=== PATIENT | female | born 1945 | race African-American/Black ===

== ENCOUNTER 2016-11-08 07:50 | Inpatient (IN) | payer OTHER, MEDICARE ==
[~2016-11-08] VITALS: Ht 160 cm; Wt 79.8 kg
[~2016-11-08 07:50] MED LIST: ASPIRIN E.C.81 M1 PO; Advil,Nuprin,Motrin PO; CENTRUM SILV1 TABLE1 PO; COZAAR100 MG PO; Caltrate 600+D Plus PO; LOVENOX40 MG/0.4 SC; MOTRIN600 MG PO; ULTRAM50 MG PO; ZOCOR20 MG PO
[2016-11-08 08:24] VITALS: BP 138/65
[2016-11-08 15:30] VITALS: BP 150/67
[2016-11-08 18:05] LABS: ANION GAP 8 MEQ/L (2-14); CHLORIDE 105 MEQ/L (99-109); GFR ESTIMATE (CALCULATED) > 59 mL/min/; GLUCOSE 222 mg/dL (70-99); POTASSIUM 3.4 MEQ/L (3.7-5.4); SAMPLE HEMOLYSIS CHECK 0; SAMPLE ICTERIC CHECK 0; SAMPLE LIPEMIA CHECK 0; SODIUM 139 MEQ/L (136-147); UREA NITROGEN (BUN) 8 mg/dL (9-23)
[2016-11-08 19:32] VITALS: BP 144/65
[2016-11-08 19:51] LABS: HEMATOCRIT 34.9 % (36.0-46.0); MCH 25.4 PG (29.0-34.0); MCHC 34.1 G/DL (30.0-36.0); MCV 74.6 FL (83-99); MEAN PLAT.VOLUME 9.5 uM^3 (9.5-12.4); PLATELET COUNT 272 K/uL (156-360); RBC DIS.WIDTH-CV 14.6 % (11.8-14.6); RED BLOOD COUNT 4.68 M/uL (3.80-5.20)
[2016-11-08 19:57] LABS: WHITE BLOOD COUNT 12.8 K/uL (4.1-10.2)
[2016-11-08 23:28] VITALS: BP 116/59
[2016-11-09 04:31] VITALS: BP 139/64
[2016-11-09 06:19] LABS: ANION GAP 6 MEQ/L (2-14); CHLORIDE 110 MEQ/L (99-109); GFR ESTIMATE (CALCULATED) > 59 mL/min/; GLUCOSE 130 mg/dL (70-99); POTASSIUM 3.7 MEQ/L (3.7-5.4); SAMPLE HEMOLYSIS CHECK 0; SAMPLE ICTERIC CHECK 0; SAMPLE LIPEMIA CHECK 0; SODIUM 141 MEQ/L (136-147); UREA NITROGEN (BUN) 5 mg/dL (9-23)
[2016-11-09 06:27] LABS: HEMATOCRIT 32.7 % (36.0-46.0); MCH 25.5 PG (29.0-34.0); MCHC 34.3 G/DL (30.0-36.0); MCV 74.3 FL (83-99); MEAN PLAT.VOLUME 9.8 uM^3 (9.5-12.4); PLATELET COUNT 264 K/uL (156-360); RBC DIS.WIDTH-CV 14.6 % (11.8-14.6); RBC DIS.WIDTH-SD 39.3 % (39-53); WHITE BLOOD COUNT 12.2 K/uL (4.1-10.2)
[2016-11-09 07:50] VITALS: BP 131/62
[2016-11-09 11:50] VITALS: BP 125/66
[2016-11-09 15:20] VITALS: BP 134/72
[2016-11-09 19:45] VITALS: BP 138/67
[2016-11-09 23:28] VITALS: BP 144/71
[2016-11-10 00:04] VITALS: BP 156/75
[2016-11-10 04:07] VITALS: BP 150/69
[2016-11-10 06:18] LABS: HEMATOCRIT 30.3 % (36.0-46.0); MCH 25.1 PG (29.0-34.0); MCHC 33.7 G/DL (30.0-36.0); MCV 74.4 FL (83-99); MEAN PLAT.VOLUME 9.7 uM^3 (9.5-12.4); PLATELET COUNT 244 K/uL (156-360); RBC DIS.WIDTH-CV 14.7 % (11.8-14.6); RBC DIS.WIDTH-SD 39.6 % (39-53); RED BLOOD COUNT 4.07 M/uL (3.80-5.20); WHITE BLOOD COUNT 12.9 K/uL (4.1-10.2)
[2016-11-10 06:58] LABS: ANION GAP 7 MEQ/L (2-14); CHLORIDE 105 MEQ/L (99-109); POTASSIUM 3.1 MEQ/L (3.7-5.4); SAMPLE HEMOLYSIS CHECK 0; SAMPLE ICTERIC CHECK 0; SAMPLE LIPEMIA CHECK 0; SODIUM 139 MEQ/L (136-147)
[2016-11-10 07:04] LABS: GFR ESTIMATE (CALCULATED) > 59 mL/min/; GLUCOSE 127 mg/dL (70-99); UREA NITROGEN (BUN) 4 mg/dL (9-23)
[2016-11-10 08:22] VITALS: BP 157/76
[2016-11-10 15:20] VITALS: BP 150/66
[2016-11-10 23:50] VITALS: BP 150/70
[2016-11-11 06:48] LABS: HEMATOCRIT 30.6 % (36.0-46.0); MCH 25.2 PG (29.0-34.0); MCV 74.1 FL (83-99); MEAN PLAT.VOLUME 10.3 uM^3 (9.5-12.4); PLATELET COUNT 259 K/uL (156-360); RBC DIS.WIDTH-CV 14.7 % (11.8-14.6); RBC DIS.WIDTH-SD 39.3 % (39-53); RED BLOOD COUNT 4.13 M/uL (3.80-5.20); WHITE BLOOD COUNT 11.8 K/uL (4.1-10.2)
[2016-11-11 07:04] LABS: ANION GAP 9 MEQ/L (2-14); CHLORIDE 103 MEQ/L (99-109); GFR ESTIMATE (CALCULATED) > 59 mL/min/; GLUCOSE 108 mg/dL (70-99); POTASSIUM 3.6 MEQ/L (3.7-5.4); SAMPLE HEMOLYSIS CHECK 0; SAMPLE ICTERIC CHECK 0; SAMPLE LIPEMIA CHECK 0; SODIUM 138 MEQ/L (136-147); UREA NITROGEN (BUN) 6 mg/dL (9-23)
[2016-11-11 07:55] VITALS: BP 137/61
[2016-11-11] MEDS ORDERED: TRAMADOL HCL50 MG PO (09:06)
== END 2016-11-11 10:20 | disposition home or self-care (01) | DRG 330 ==
LOC: 2SOUTH 07:50 → 2EAST 15:28
PROVIDERS: Nurse Practitioner Acute Care; Obstetrics & Gynecology Gynecologic Oncology
DX: C78.5 Secondary malignant neoplasm of large intestine and rectum (principal); C79.89 Secondary malignant neoplasm of other specified sites; N99.4 Postprocedural pelvic peritoneal adhesions; K66.0 Peritoneal adhesions (postprocedural) (postinfection); R51 Headache; R35.1 Nocturia; Z85.43 Personal history of malignant neoplasm of ovary; Z90.710 Acquired absence of both cervix and uterus; Z80.1 Family history of malignant neoplasm of trachea, bronchus and lung; Z83.3 Family history of diabetes mellitus; Z08 Encounter for follow-up examination after completed treatment for malignant neoplasm
CPT/HCPCS: 36415; 80048; 85027; 86900; 86901; 86920; 88305; 94799; C1758; J0330; J0690; J1100; J1170; J1650; J1885; J2250; J2405; J2710; J2765; J3010; J3480